=== PATIENT | male | born 1990 | race Caucasian/White ===

== ENCOUNTER 2018-01-16 15:22 | Emergency (ER) | payer OTHER ==
[2018-01-16 17:18] LABS: INFLUENZA A AMPLIFICATION NEGATIVE (NEGATIVE); INFLUENZA B AMPLIFICATION NEGATIVE (NEGATIVE)
[2018-01-16] MEDS: ONDANSETRON 4 MG ORAL DISINTEGRATING TAB (Q0162 PER 1MG) PO (18:27)
[2018-01-16] MEDS: KETOROLAC 60 MG/2 ML VIAL (J1885) IM (18:28)
[2018-01-16] MEDS: MAGIC MOUTHWASH SUSPENSION BTL SSP (18:38)
== END 2018-01-16 18:41 | disposition home or self-care (01) ==
LOC: M ED 15:22
DX: J02.8 Acute pharyngitis due to other specified organisms (principal)
CPT/HCPCS: Q0162

== ENCOUNTER → 2021-11-27 | Outpatient (CLI) | payer OTHER ==
[~2021-11-27] MED LIST: ADDE20CA3 PO; AIRB1CHW PO; AZIT-12 PO; BENA10TA PO; DESV50TA PO; DICY10CA13 PO; IBUP80TA PO; LOPE2TAB12 PO; MAGICMW MT; ONDA-84 PO; ONDA4TAB6 PO; PROC10TA5 PO; PROP10TA56 PO; TRIA1CR80 TOP; ZOFR4TAB14 PO; testosterone cream
== END ==
LOC: M RAD 14:14
PROVIDERS: ATTEND Nurse Practitioner
DX: M54.9 Dorsalgia, unspecified (principal); W19.XXXA Unspecified fall, initial encounter

== ENCOUNTER 2021-11-28 14:53 | Inpatient (IN) | payer OTHER ==
[~2021-11-28] VITALS: Ht 170.2 cm; Wt 75.0 kg
[~2021-11-28 14:53] MED LIST changes: -ADDE20TA PO; -CETI-24 PO; -DESV25TA PO; -HYDR50TA70 PO; -PROP20TA72 PO; -PROT20TA11 PO; -TRAZ-252 PO; -TRAZ-257 PO
[2021-11-28 16:00] LABS: HEMATOCRIT 33.5 % (42.0-52.0); HEMOGLOBIN 11.6 g/dl (13.5-17.5); MEAN CORPUSCULAR HEMOGLOBIN 31.3 pg (27.0-33.0); MEAN CORPUSCULAR HGB CONC 34.6 g/dl (32.0-36.5); MEAN CORPUSCULAR VOLUME 90.3 fl (80.0-96.0); PLATELET COUNT, AUTOMATED 164 10^3/uL (150-450); RED BLOOD COUNT 3.71 10^6/uL (4.30-6.10); WHITE BLOOD COUNT 2.3 10^3/uL (4.0-10.0)
[2021-11-28 16:22] LABS: RSV AMPLIFICATION NEGATIVE (NEGATIVE)
[2021-11-28 16:44] LABS: AMPHETAMINES LEVEL URINE POSITIVE (NEGATIVE); BARBITURATES URINE NEGATIVE (NEGATIVE); BENZODIAZEPINES URINE NEGATIVE (NEGATIVE); CANNABINOIDS URINE POSITIVE (NEGATIVE); COCAINE METABOLITE URINE NEGATIVE (NEGATIVE); METHADONE URINE NEGATIVE (NEGATIVE); OPIATES URINE POSITIVE (NEGATIVE); PHENCYCLIDINE URINE NEGATIVE (NEGATIVE)
[2021-11-28 16:50] LABS: ACETAMINOPHEN LEVEL < 2.0 UG/ML (10.0-30.0); ALBUMIN 3.8 GM/DL (3.2-5.2); ALT/SGPT 35 U/L (12-78); BILIRUBIN,DIRECT < 0.1 MG/DL (0.0-0.2); BILIRUBIN,TOTAL 0.3 MG/DL (0.2-1.0); BLOOD UREA NITROGEN 12 MG/DL (7-18); CALCIUM LEVEL 8.8 MG/DL (8.5-10.1); CARBON DIOXIDE LEVEL 24 MEQ/L (21-32); CHLORIDE LEVEL 109 MEQ/L (98-107); CREATININE FOR GFR 0.85 MG/DL (0.70-1.30); ETHYL ALCOHOL (ETHANOL) < 0.003 % (0.000-0.010); GLOMERULAR FILTRATION RATE > 60.0 (>60); GLUCOSE, FASTING 119 MG/DL (70-100); SALICYLATE LEVEL < 1.7 MG/DL (5.0-30.0); SODIUM LEVEL 140 MEQ/L (136-145); THYROID STIMULATING HORMONE 0.691 uIU/ML (0.358-3.740); TOTAL PROTEIN 7.7 GM/DL (6.4-8.2)
[2021-11-28] MEDS ORDERED: ONDANSETRON 4MG ORAL DISINTEGRATING TAB PO ONE (22:40)
[2021-11-28] MEDS ORDERED: traZODone 50 MG TAB PO ONE (22:40)
[2021-11-28] MEDS ORDERED: ACETAMINOPHEN TAB 650MG DOSE (2X325MG) PO ONE (22:40)
[2021-11-28] MEDS ORDERED: IBUPROFEN 800 MG TAB PO ONE (23:25)
[2021-11-29] MEDS: PANTOPRAZOLE 20 MG TAB PO SCH (09:00)
[2021-11-29] MEDS ORDERED: DESV25TA PO (12:17)
[2021-11-29] MEDS ORDERED: HYDR50TA70 PO (12:17)
[2021-11-29] MEDS ORDERED: ADDE20TA PO (12:17)
[2021-11-29] MEDS ORDERED: CETI-24 PO (12:17)
[2021-11-29] MEDS ORDERED: PROT20TA11 PO (12:17)
[2021-11-29] MEDS ORDERED: PROP20TA72 PO (12:17)
[2021-11-29] MEDS ORDERED: HOME MED LIST COMPLETE! XX SCH (12:20)
[2021-11-29] MEDS: PROPRANOLOL 20 MG TAB PO ONE ×2 (12:45→14:06)
[2021-11-29] MEDS ORDERED: DESVENLAFAXINE ER 50 MG TABLET (PRISTIQ) PO SCH (12:45)
[2021-11-29] MEDS ORDERED: DESVENLAFAXINE ER 50 MG TABLET (PRISTIQ) PO ONE (12:45)
[2021-11-29] MEDS ORDERED: ADDERALL 5 MG TAB PO ONE (12:45)
[2021-11-29] MEDS ORDERED: BENAZEPRIL 20 MG TAB PO ONE (12:50)
[2021-11-29] MEDS ORDERED: BENAZEPRIL 5MG TAB PO ONE (13:15)
[2021-11-29] MEDS ORDERED: LOPERAMIDE 2 MG CAPLET PO PRN (13:35)
[2021-11-29] MEDS ORDERED: DICYCLOMINE 10 MG CAP PO PRN (13:35)
[2021-11-29] MEDS ORDERED: MAALOX 30 ML SUSP *UDC PO PRN (13:35)
[2021-11-29] MEDS ORDERED: MOM 30ML SUSPENSION UDC PO PRN (13:35)
[2021-11-29] MEDS ORDERED: PROPRANOLOL 20 MG TAB PO PRN (13:35)
[2021-11-29] MEDS ORDERED: IBUPROFEN 400MG TAB PO PRN (13:35)
[2021-11-29] MEDS ORDERED: PROCHLORPERAZINE 5MG TAB PO PRN (13:35)
[2021-11-29] MEDS: CETIRIZINE (ZyrTEC) 10 MG TAB PO SCH (14:05)
[2021-11-29] MEDS: NICOTINE 21MG/24HR 1 EA TRANSDERMAL TD SCH (14:24)
[2021-11-29] MEDS: ONDANSETRON 4MG TAB PO PRN ×2 (14:55→23:20)
[2021-11-29 16:17] VITALS: BP 153/94
[2021-11-29] MEDS ORDERED: TRIAMCINOLONE ACET 0.1% CREAM 80 GM TOP SCH (21:00)
[2021-11-29] MEDS ORDERED: IBUPROFEN 800 MG TAB PO PRN (23:10)
[2021-11-29] MEDS: ACETAMINOPHEN TAB 650MG DOSE (2X325MG) PO PRN (23:19)
[2021-11-29] MEDS: traZODone 50 MG TAB PO PRN (23:19)
[2021-11-30 06:45] VITALS: BP 128/72
[2021-11-30] MEDS: BENAZEPRIL 5MG TAB PO SCH (08:40)
[2021-11-30] MEDS: PANTOPRAZOLE 20 MG TAB PO SCH (08:40)
[2021-11-30] MEDS: CETIRIZINE (ZyrTEC) 10 MG TAB PO SCH (08:40)
[2021-11-30] MEDS: NICOTINE 21MG/24HR 1 EA TRANSDERMAL TD SCH (08:40)
[2021-11-30 16:38] VITALS: BP 145/87
[2021-11-30] MEDS: traZODone 50 MG TAB PO PRN (21:17)
[2021-11-30] MEDS: ONDANSETRON 4MG TAB PO PRN (21:18)
[2021-12-01 06:33] VITALS: BP 120/74
[2021-12-01] MEDS: NICOTINE 21MG/24HR 1 EA TRANSDERMAL TD SCH (07:52)
[2021-12-01] MEDS: CETIRIZINE (ZyrTEC) 10 MG TAB PO SCH (07:52)
[2021-12-01] MEDS: PANTOPRAZOLE 20 MG TAB PO SCH (07:52)
[2021-12-01] MEDS: BENAZEPRIL 5MG TAB PO SCH (07:53)
[2021-12-01 17:29] VITALS: BP 136/88
[2021-12-01] MEDS: ONDANSETRON 4MG TAB PO PRN (19:23)
[2021-12-01] MEDS: hydrOXYzine 50 MG TAB PO PRN (22:00)
[2021-12-01] MEDS: diphenhydrAMINE 25MG CAP PO PRN (22:00)
[2021-12-01] MEDS: traZODone 50 MG TAB PO PRN (22:00)
[2021-12-02 06:45] VITALS: BP 134/71
[2021-12-02] MEDS: PANTOPRAZOLE 20 MG TAB PO SCH (09:51)
[2021-12-02] MEDS: BENAZEPRIL 5MG TAB PO SCH (09:51)
[2021-12-02] MEDS: CETIRIZINE (ZyrTEC) 10 MG TAB PO SCH (09:51)
[2021-12-02] MEDS: NICOTINE 21MG/24HR 1 EA TRANSDERMAL TD SCH (09:51)
[2021-12-02 16:58] VITALS: BP 130/85
[2021-12-02] MEDS ORDERED: traZODone 100 MG TAB PO PRN (21:00)
[2021-12-03 06:48] VITALS: BP 120/68
[2021-12-03] MEDS: PANTOPRAZOLE 20 MG TAB PO SCH (09:34)
[2021-12-03] MEDS: NICOTINE 21MG/24HR 1 EA TRANSDERMAL TD SCH (09:34)
[2021-12-03] MEDS: CETIRIZINE (ZyrTEC) 10 MG TAB PO SCH (09:34)
[2021-12-03] MEDS: BENAZEPRIL 5MG TAB PO SCH (09:36)
[2021-12-03] MEDS: ACETAMINOPHEN TAB 650MG DOSE (2X325MG) PO PRN (09:38)
[2021-12-03] MEDS: ONDANSETRON 4MG TAB PO PRN (12:44)
[2021-12-03 17:00] VITALS: BP 133/70
[2021-12-03] MEDS: traZODone 50 MG TAB PO PRN (20:19)
[2021-12-03] MEDS: hydrOXYzine 50 MG TAB PO PRN (23:46)
[2021-12-04 06:31] VITALS: BP 106/53
[2021-12-04] MEDS: NICOTINE 21MG/24HR 1 EA TRANSDERMAL TD SCH (09:00)
[2021-12-04] MEDS: BENAZEPRIL 5MG TAB PO SCH (09:02)
[2021-12-04] MEDS: CETIRIZINE (ZyrTEC) 10 MG TAB PO SCH (09:02)
[2021-12-04] MEDS: PANTOPRAZOLE 20 MG TAB PO SCH (09:02)
[2021-12-04 18:20] VITALS: BP 135/84
[2021-12-04] MEDS: hydrOXYzine 50 MG TAB PO PRN (21:27)
[2021-12-04] MEDS: traZODone 50 MG TAB PO PRN (21:28)
[2021-12-05 06:40] VITALS: BP 123/63
[2021-12-05] MEDS: NICOTINE 21MG/24HR 1 EA TRANSDERMAL TD SCH (09:00)
[2021-12-05] MEDS: PANTOPRAZOLE 20 MG TAB PO SCH (09:13)
[2021-12-05] MEDS: BENAZEPRIL 5MG TAB PO SCH (09:14)
[2021-12-05] MEDS: CETIRIZINE (ZyrTEC) 10 MG TAB PO SCH (09:14)
[2021-12-05] MEDS ORDERED: traZODone 50 MG TAB PO PRN (12:35)
[2021-12-05 18:15] VITALS: BP 141/94
[2021-12-05] MEDS: hydrOXYzine 50 MG TAB PO PRN (20:07)
[2021-12-06] MEDS: diphenhydrAMINE 25MG CAP PO PRN (03:06)
[2021-12-06 06:32] VITALS: BP 125/79
[2021-12-06] MEDS: CETIRIZINE (ZyrTEC) 10 MG TAB PO SCH (09:00)
[2021-12-06] MEDS: NICOTINE 21MG/24HR 1 EA TRANSDERMAL TD SCH (09:00)
[2021-12-06] MEDS: ONDANSETRON 4MG TAB PO PRN (09:11)
[2021-12-06] MEDS: PANTOPRAZOLE 20 MG TAB PO SCH (09:12)
[2021-12-06 09:14] VITALS: BP 134/91
[2021-12-06] MEDS: BENAZEPRIL 5MG TAB PO SCH (09:14)
[2021-12-06] MEDS ORDERED: TRAZ-252 PO (10:55)
[2021-12-06] MEDS ORDERED: HYDR50TA70 PO (10:55)
[2021-12-06] MEDS ORDERED: TRAZ-257 PO (12:36)
== END 2021-12-06 13:00 | disposition home or self-care (01) | DRG 885 ==
LOC: M ED 14:53 → M ED INP 11-29 13:32 → M PSY 11-29 15:49
PROVIDERS: ADMIT Student in an Organized Health Care Education/Training Program; ATTEND Psychiatry & Neurology Psychiatry
DX: F39 Unspecified mood [affective] disorder (principal); R45.851 Suicidal ideations; C77.9 Secondary and unspecified malignant neoplasm of lymph node, unspecified; F32.9 Major depressive disorder, single episode, unspecified; F31.9 Bipolar disorder, unspecified; Z79.899 Other long term (current) drug therapy; I10 Essential (primary) hypertension; Z85.47 Personal history of malignant neoplasm of testis; F17.200 Nicotine dependence, unspecified, uncomplicated; Z92.21 Personal history of antineoplastic chemotherapy; C62.90 Malignant neoplasm of unspecified testis, unspecified whether descended or undescended; Z63.5 Disruption of family by separation and divorce

== ENCOUNTER → 2021-11-28 | Outpatient (REF) ==
[~2021-11-28] MED LIST changes: +ADDE20TA PO; +CETI-24 PO; +DESV25TA PO; +HYDR50TA70 PO; +PROP20TA72 PO; +PROT20TA11 PO; +TRAZ-252 PO; +TRAZ-257 PO
== END ==
LOC: M PLAIMG 10:30
PROVIDERS: ATTEND Internal Medicine
DX: M06.9 Rheumatoid arthritis, unspecified (principal)

== ENCOUNTER → 2021-12-08 | Outpatient (CLI) | payer OTHER ==
[~2021-12-08] MED LIST changes: +ADDE20TA PO; +CETI-24 PO; +DESV25TA PO; +GASTROGRAFIN SOLUTION 30ML (Q9963) As Ordered ONE; +HYDR50TA70 PO; +ISOVUE-370 76% 100ML VIAL As Ordered ONE; +PROP20TA72 PO; +PROT20TA11 PO; +TRAZ-252 PO; +TRAZ-257 PO
== END ==
LOC: M RAD 13:01
PROVIDERS: ATTEND Family Medicine
DX: C62.12 Malignant neoplasm of descended left testis (principal)
CPT/HCPCS: 71260; 74177; Q9963; Q9967

== ENCOUNTER → 2022-03-12 | Outpatient (CLI) | payer OTHER ==
[~2022-03-12] MED LIST changes: -GASTROGRAFIN SOLUTION 30ML (Q9963) As Ordered ONE; +GASTROGRAFIN SOLUTION 30ML As Ordered ONE; +MIRT1TAB PO
== END ==
LOC: M RAD 10:55
PROVIDERS: ATTEND Nurse Practitioner
DX: C62.90 Malignant neoplasm of unspecified testis, unspecified whether descended or undescended (principal)

== ENCOUNTER → 2022-09-10 | Outpatient (CLI) | payer OTHER ==
[~2022-09-10] MED LIST changes: +ADDE20TA
== END ==
LOC: M RAD 13:52
PROVIDERS: ATTEND Nurse Practitioner
DX: C62.90 Malignant neoplasm of unspecified testis, unspecified whether descended or undescended (principal)
CPT/HCPCS: 74177; Q9963; Q9967

== ENCOUNTER → 2023-07-02 | Outpatient (CLI) | payer OTHER ==
[~2023-07-02] MED LIST changes: +DICY-61 PO; -DICY10CA13 PO
== END ==
LOC: M RAD 15:00
PROVIDERS: ATTEND Nurse Practitioner
DX: C62.92 Malignant neoplasm of left testis, unspecified whether descended or undescended (principal)
CPT/HCPCS: 71260; 74177; Q9963; Q9967